=== PATIENT | male | born 1950 | race Two or more races ===

== ENCOUNTER 2021-08-18 21:44 | Inpatient (IN) | payer OTHER ==
[~2021-08-18] VITALS: Ht 182.9 cm; Wt 138.0 kg
[2021-08-18] MEDS ORDERED: DEXTROSE 50% SYRINGE 50 ML IV ONE (21:54)
[2021-08-18] MEDS ORDERED: DEXTROSE (50%) 50ML SYRG IV ONE ×2 (22:15→22:30)
[2021-08-18] MEDS ORDERED: D5W/SOD CHLO 0.9% 1,000 ML IV ONE (22:30)
[2021-08-18 23:05] LABS: Basophils # (auto) 0 10 ^3/uL (0-0.2); Basophils % (auto) 0.6 % (0.0-2.0); Eosinophils # (auto) 0.1 10 ^3/uL (0-0.8); Eosinophils % (auto) 1.1 % (0.0-7.0); Hematocrit 40.9 % (41.0-53.0); Hemoglobin 13.4 g/dL (13.5-17.5); Lymphocytes # (auto) 0.5 10 ^3/uL (0.4-5.4); Lymphocytes % (auto) 8.3 % (10.0-50.0); Mean Corpuscular Hemoglobin 32.9 pg (28.0-32.0); Mean Corpuscular Hgb Conc. 32.7 g/dL (32.0-36.0); Mean Corpuscular Volume 100.5 fL (80.0-100.0); Monocytes # (auto) 0.7 10 ^3/uL (0-1.3); Monocytes % (auto) 10.8 % (0.0-12.0); Neutrophils # (auto) 4.8 10 ^3/uL (1.6-8.6); Neutrophils % (auto) 79.2 % (37.0-80.0); Nucleated Red Blood Cells % 0.1 %; Red Blood Cells 4.07 10^6/uL (4.5-5.90); White Blood Cell 6.1 10^3/uL (4.4-10.8)
[2021-08-18 23:24] LABS: BUN/Creatinine Ratio 11.8; INR 1.16 (0.9-1.15); Magnesium 2.1 mg/dL (1.6-2.6); Partial Thromboplastin Time 30.6 sec (23.6-33.0); Potassium 4.8 mmol/L (3.5-5.1)
[2021-08-18 23:27] LABS: Bilirubin, Total 0.1 mg/dL (0.2-1.0); Total Protein 6.4 g/dL (6.4-8.2)
[2021-08-19] MEDS ORDERED: DEXTROSE (50%) 50ML SYRG IV ONE ×2 (01:00→06:00)
[2021-08-19] MEDS ORDERED: D5W/SOD CHLO 0.9% 1,000 ML IV ONE ×2 (01:15→06:00)
[2021-08-19] MEDS ORDERED: MORPHINE SULFATE INJECTION 2 MG/ML SYRG IV PRN (05:45)
[2021-08-19] MEDS ORDERED: NITROGLYCERIN 0.4 MG SL TAB SL PRN (05:45)
[2021-08-19] MEDS ORDERED: hydrALAZINE HCL 20 MG/ML VL IV PRN ×3 (06:00→07:45)
[2021-08-19] MEDS ORDERED: SODIUM BICARBONATE 8.4 % INJ 50ML VIAL IV ONE (06:00)
[2021-08-19] MEDS ORDERED: DEXTROSE (50%) 50ML SYRG IV PRN (07:30)
[2021-08-19] MEDS: SODIUM CHLORIDE 0.9% 1,000 ML IV SCH ×2 (08:00→17:15)
[2021-08-19] MEDS: ALBUTEROL SULF HFA 90MCG INH 200DOSE IN SCH ×2 (08:16→19:22)
[2021-08-19 09:04] LABS: Basophils # (auto) 0.1 10 ^3/uL (0-0.2); Eosinophils # (auto) 0 10 ^3/uL (0-0.8); Eosinophils % (auto) 0.4 % (0.0-7.0); Hematocrit 43.1 % (41.0-53.0); Hemoglobin 14.3 g/dL (13.5-17.5); Lymphocytes # (auto) 0.5 10 ^3/uL (0.4-5.4); Lymphocytes % (auto) 8.2 % (10.0-50.0); Mean Corpuscular Hemoglobin 33.2 pg (28.0-32.0); Mean Corpuscular Hgb Conc. 33.2 g/dL (32.0-36.0); Mean Corpuscular Volume 100.1 fL (80.0-100.0); Monocytes # (auto) 0.8 10 ^3/uL (0-1.3); Monocytes % (auto) 12.3 % (0.0-12.0); Neutrophils # (auto) 4.8 10 ^3/uL (1.6-8.6); Neutrophils % (auto) 78.1 % (37.0-80.0); Nucleated Red Blood Cells % 0.1 %; Red Blood Cells 4.31 10^6/uL (4.5-5.90); Red Cell Distribution Width 13.1 % (11.8-14.3); White Blood Cell 6.2 10^3/uL (4.4-10.8)
[2021-08-19 10:00] LABS: Urine Bacteria NONE SEEN /hpf (None Seen); Urine Blood 1+ /uL (Negative); Urine Specific Gravity 1.016 (1.001-1.035); Urine WBC 1 /hpf (0 - 3)
[2021-08-19] MEDS ORDERED: DOPamine 1600MCG/ML D5W 250 ML IV SCH (10:00)
[2021-08-19 10:19] LABS: Albumin 1.9 g/dL (3.4-5.0); BUN/Creatinine Ratio 10.8; Calcium 7.3 mg/dL (8.5-10.1)
[2021-08-19 10:22] LABS: Bilirubin, Total 0.4 mg/dL (0.2-1.0); Total Protein 5.9 g/dL (6.4-8.2)
[2021-08-19 10:26] LABS: Potassium 5.8 mmol/L (3.5-5.1)
[2021-08-19] MEDS: DexAMETHasone SOD PHOS 10MG/1ML VIAL INJ IV SCH (10:53)
[2021-08-19] MEDS: ZINC SULFATE 220mg CAP or TAB PO SCH (10:54)
[2021-08-19] MEDS: ASCORBIC ACID 500 MG TAB PO SCH (10:54)
[2021-08-19] MEDS: ENOXAPARIN SOD 40 MG/0.4 ML SYRINGE SC SCH (10:54)
[2021-08-19] MEDS ORDERED: LACTULOSE 20Gm/30ML SOLN PO ONE (11:00)
[2021-08-19] MEDS ORDERED: SODIUM ZIRCONIUM CYCL 10 GM PAK PO ONE (11:00)
[2021-08-19] MEDS: InsuLIN REG 1unit/0.01ml Soln (100units/ml) SC SCH ×3 (11:30→21:12)
[2021-08-19 13:00] VITALS: BP 166/86
[2021-08-19] MEDS: ACCU-CHEK COMFORT CURVE STRIP VI SCH ×3 (13:01→21:18)
[2021-08-19] MEDS ORDERED: LISI-707 PO (13:16)
[2021-08-19] MEDS ORDERED: CARV12.544 PO (13:16)
[2021-08-19] MEDS ORDERED: SPIR25TA8 PO (13:16)
[2021-08-19] MEDS ORDERED: CALC-312 PO (13:16)
[2021-08-19] MEDS ORDERED: CALC-239 PO (13:16)
[2021-08-19] MEDS ORDERED: GLIP10TA9 PO (13:16)
[2021-08-19] MEDS ORDERED: METF-929 PO (13:16)
[2021-08-19] MEDS ORDERED: ALLO100T PO (13:16)
[2021-08-19] MEDS ORDERED: VITA180C PO (13:21)
[2021-08-19] MEDS ORDERED: CHOL100029 PO (13:21)
[2021-08-19] MEDS ORDERED: GARL10005 PO (13:21)
[2021-08-19] MEDS ORDERED: CINN500T PO (13:21)
[2021-08-19 14:15] VITALS: BP 166/86
[2021-08-19 17:00] VITALS: BP 147/86
[2021-08-19 20:58] VITALS: BP 119/59
[2021-08-19 21:13] LABS: Creatinine, Urine 72 mg/dL (30.0-125.0); Sodium Urine 87 mmol/L (40-220)
[2021-08-19 21:21] LABS: Protein, Urine 1140.6 mg/dL (0.0-11.9)
[2021-08-20] MEDS: SODIUM CHLORIDE 0.9% 1,000 ML IV SCH (03:30)
[2021-08-20 05:00] VITALS: BP 106/59
[2021-08-20] MEDS: ACCU-CHEK COMFORT CURVE STRIP VI SCH ×4 (05:22→21:43)
[2021-08-20] MEDS: InsuLIN REG 1unit/0.01ml Soln (100units/ml) SC SCH ×4 (05:25→21:34)
[2021-08-20 07:11] LABS: Basophils # (auto) 0 10 ^3/uL (0-0.2); Basophils % (auto) 0.2 % (0.0-2.0); Eosinophils # (auto) 0 10 ^3/uL (0-0.8); Hematocrit 39.5 % (41.0-53.0); Hemoglobin 13.2 g/dL (13.5-17.5); Lymphocytes # (auto) 0.5 10 ^3/uL (0.4-5.4); Lymphocytes % (auto) 9.1 % (10.0-50.0); Mean Corpuscular Hemoglobin 33.4 pg (28.0-32.0); Mean Corpuscular Hgb Conc. 33.5 g/dL (32.0-36.0); Mean Corpuscular Volume 99.6 fL (80.0-100.0); Monocytes # (auto) 0.6 10 ^3/uL (0-1.3); Monocytes % (auto) 9.8 % (0.0-12.0); Neutrophils # (auto) 4.5 10 ^3/uL (1.6-8.6); Neutrophils % (auto) 80.9 % (37.0-80.0); Red Blood Cells 3.96 10^6/uL (4.5-5.90); White Blood Cell 5.6 10^3/uL (4.4-10.8)
[2021-08-20 07:19] LABS: Albumin 1.8 g/dL (3.4-5.0); BUN/Creatinine Ratio 11.2; Calcium 7.7 mg/dL (8.5-10.1)
[2021-08-20 07:22] LABS: Bilirubin, Total 0.2 mg/dL (0.2-1.0); Total Protein 5.4 g/dL (6.4-8.2)
[2021-08-20] MEDS: ALBUTEROL SULF HFA 90MCG INH 200DOSE IN SCH ×3 (07:57→19:03)
[2021-08-20 08:06] LABS: Potassium 6.2 mmol/L (3.5-5.1)
[2021-08-20] MEDS ORDERED: SODIUM ZIRCONIUM CYCL 10 GM PAK PO ONE (08:45)
[2021-08-20 09:04] VITALS: BP 143/72
[2021-08-20] MEDS: ENOXAPARIN SOD 40 MG/0.4 ML SYRINGE SC SCH (09:14)
[2021-08-20] MEDS: DexAMETHasone SOD PHOS 10MG/1ML VIAL INJ IV SCH (09:14)
[2021-08-20] MEDS: ASCORBIC ACID 500 MG TAB PO SCH (09:14)
[2021-08-20] MEDS: ZINC SULFATE 220mg CAP or TAB PO SCH (09:14)
[2021-08-20] MEDS ORDERED: LACTULOSE 20Gm/30ML SOLN PO ONE (09:30)
[2021-08-20] MEDS ORDERED: SODIUM CHLORIDE 0.9% 1,000 ML IV SCH (11:00)
[2021-08-20 13:00] VITALS: BP 143/79
[2021-08-20] MEDS: SODIUM BICARBONATE 50ML VIAL 50 ML in SOD CHL 0.45% 1,000 ML IV SCH ×2 (14:10→23:15)
[2021-08-20] MEDS: SODIUM ZIRCONIUM CYCL 10 GM PAK PO SCH ×2 (14:11→21:34)
[2021-08-20 17:00] VITALS: BP 142/74
[2021-08-20] MEDS ORDERED: guaiFENesin-DM 100/10mg/5ml SYR PO PRN (20:00)
[2021-08-20] MEDS: THROAT LOZENGES(CEPASTAT) MT PRN (20:27)
[2021-08-20 21:09] VITALS: BP 130/73
[2021-08-21 02:05] LABS: Urine Amorphous Crystal FEW /hpf (None Seen); Urine Bacteria MANY /hpf (None Seen); Urine Blood 2+ /uL (Negative); Urine Hyaline Cast FEW /lpf (0 - 2); Urine Mucus FEW (None Seen); Urine Specific Gravity 1.016 (1.001-1.035); Urine WBC 3 /hpf (0 - 3)
[2021-08-21 05:00] VITALS: BP 147/74
[2021-08-21] MEDS: SODIUM ZIRCONIUM CYCL 10 GM PAK PO SCH ×3 (06:19→21:39)
[2021-08-21] MEDS: THROAT LOZENGES(CEPASTAT) MT PRN ×2 (06:22→17:04)
[2021-08-21] MEDS: InsuLIN REG 1unit/0.01ml Soln (100units/ml) SC SCH ×4 (06:23→21:40)
[2021-08-21] MEDS: ACCU-CHEK COMFORT CURVE STRIP VI SCH ×4 (06:32→22:00)
[2021-08-21 07:36] LABS: Basophils # (auto) 0 10 ^3/uL (0-0.2); Basophils % (auto) 0.1 % (0.0-2.0); Eosinophils # (auto) 0 10 ^3/uL (0-0.8); Hematocrit 36.9 % (41.0-53.0); Hemoglobin 12.5 g/dL (13.5-17.5); Lymphocytes # (auto) 0.6 10 ^3/uL (0.4-5.4); Lymphocytes % (auto) 7.6 % (10.0-50.0); Mean Corpuscular Hemoglobin 33.9 pg (28.0-32.0); Mean Corpuscular Hgb Conc. 33.7 g/dL (32.0-36.0); Mean Corpuscular Volume 100.5 fL (80.0-100.0); Monocytes # (auto) 0.6 10 ^3/uL (0-1.3); Monocytes % (auto) 7.5 % (0.0-12.0); Neutrophils # (auto) 7.1 10 ^3/uL (1.6-8.6); Neutrophils % (auto) 84.8 % (37.0-80.0); Red Blood Cells 3.68 10^6/uL (4.5-5.90); White Blood Cell 8.4 10^3/uL (4.4-10.8)
[2021-08-21 07:50] LABS: BUN/Creatinine Ratio 12.5; Potassium 5.3 mmol/L (3.5-5.1)
[2021-08-21 09:00] VITALS: BP 112/65
[2021-08-21] MEDS: ZINC SULFATE 220mg CAP or TAB PO SCH (09:24)
[2021-08-21] MEDS: DexAMETHasone SOD PHOS 10MG/1ML VIAL INJ IV SCH (09:24)
[2021-08-21] MEDS: ASCORBIC ACID 500 MG TAB PO SCH (09:25)
[2021-08-21] MEDS: ENOXAPARIN SOD 40 MG/0.4 ML SYRINGE SC SCH (12:27)
[2021-08-21 12:36] VITALS: BP 136/79
[2021-08-21] MEDS: ALBUTEROL SULF HFA 90MCG INH 200DOSE IN SCH ×4 (14:00→22:30)
[2021-08-21] MEDS: SODIUM BICARBONATE 50ML VIAL 50 ML in SOD CHL 0.45% 1,000 ML IV SCH ×2 (16:34→20:38)
[2021-08-21 16:46] VITALS: BP 142/58
[2021-08-21 22:00] VITALS: BP 150/76
[2021-08-22] MEDS: SODIUM ZIRCONIUM CYCL 10 GM PAK PO SCH ×3 (06:00→22:00)
[2021-08-22] MEDS: InsuLIN REG 1unit/0.01ml Soln (100units/ml) SC SCH ×4 (06:49→22:17)
[2021-08-22] MEDS: ACCU-CHEK COMFORT CURVE STRIP VI SCH ×4 (07:00→22:16)
[2021-08-22] MEDS ORDERED: SODIUM CHL 0.9% 1000 ML BAG XX ONE (07:00)
[2021-08-22 08:00] VITALS: BP 126/73
[2021-08-22 08:07] LABS: Basophils # (auto) 0 10 ^3/uL (0-0.2); Basophils % (auto) 0.2 % (0.0-2.0); Eosinophils # (auto) 0 10 ^3/uL (0-0.8); Hematocrit 39.7 % (41.0-53.0); Hemoglobin 13.2 g/dL (13.5-17.5); Lymphocytes # (auto) 0.6 10 ^3/uL (0.4-5.4); Lymphocytes % (auto) 4.4 % (10.0-50.0); Mean Corpuscular Hemoglobin 33.6 pg (28.0-32.0); Mean Corpuscular Hgb Conc. 33.4 g/dL (32.0-36.0); Mean Corpuscular Volume 100.7 fL (80.0-100.0); Monocytes # (auto) 0.7 10 ^3/uL (0-1.3); Neutrophils # (auto) 12.4 10 ^3/uL (1.6-8.6); Neutrophils % (auto) 90.4 % (37.0-80.0); Nucleated Red Blood Cells % 0.1 %; Red Blood Cells 3.94 10^6/uL (4.5-5.90); Red Cell Distribution Width 13.3 % (11.8-14.3); White Blood Cell 13.8 10^3/uL (4.4-10.8)
[2021-08-22 08:20] LABS: BUN/Creatinine Ratio 13.2; Calcium 6.8 mg/dL (8.5-10.1)
[2021-08-22 08:55] LABS: Potassium 5.6 mmol/L (3.5-5.1)
[2021-08-22 09:00] VITALS: BP 132/66
[2021-08-22] MEDS: ALBUTEROL SULF HFA 90MCG INH 200DOSE IN SCH ×2 (09:21→14:00)
[2021-08-22] MEDS ORDERED: FUROSEMIDE 100 MG/10ML VIAL IV ONE (09:30)
[2021-08-22] MEDS ORDERED: SODIUM BICARBONATE 8.4 % INJ 50ML VIAL IV ONE (09:30)
[2021-08-22] MEDS: DexAMETHasone SOD PHOS 10MG/1ML VIAL INJ IV SCH (09:31)
[2021-08-22] MEDS: ASCORBIC ACID 500 MG TAB PO SCH (09:31)
[2021-08-22] MEDS: ZINC SULFATE 220mg CAP or TAB PO SCH (09:31)
[2021-08-22] MEDS: ENOXAPARIN SOD 40 MG/0.4 ML SYRINGE SC SCH (09:31)
[2021-08-22] MEDS ORDERED: SODIUM ZIRCONIUM CYCL 10 GM PAK PO ONE (09:45)
[2021-08-22] MEDS ORDERED: HEPARIN 1,000 UNITS/ml 1ML VIAL ONE ×2 (10:52→11:01)
[2021-08-22 11:58] LABS: INR 1.18 (0.9-1.15); Partial Thromboplastin Time 27.9 sec (23.6-33.0)
[2021-08-22 12:07] LABS: Hepatitis A Ab IgM Negative
[2021-08-22 12:55] LABS: Hepatitis B Core IgM Negative
[2021-08-22 13:08] LABS: Hepatitis C Antibody Negative (Negative)
[2021-08-22 13:18] LABS: Hepatitis C Antibody Negative (Negative)
[2021-08-22] MEDS ORDERED: LORazepam 2MG/ML-1ML VIAL ONE (14:46)
[2021-08-22] MEDS ORDERED: LORazepam 2MG/ML-1ML VIAL IV PRN (15:15)
[2021-08-22 16:20] VITALS: BP 124/56
[2021-08-22 16:51] VITALS: BP 121/54
[2021-08-22] MEDS ORDERED: diphenhdrAMINE HCL 50 MG/1 ML VL IV ONE (18:15)
[2021-08-22] MEDS ORDERED: EPOETIN ALFA-EPBX 10,000 UNIT/1ML VIAL SC ONE (21:00)
[2021-08-22 21:52] VITALS: BP 120/52
[2021-08-22] MEDS ORDERED: ALBUTEROL SULF 2.5 MG/0.5ML(0.5%) NEB SOLN NEB PRN (23:15)
[2021-08-23 05:03] VITALS: BP 147/69
== END 2021-08-23 05:29 | DRG 177 ==
LOC: ER 21:44 → EDBD 21:44 → TELE 08-19 05:48 → TELE-EAST 08-19 11:14 → OBSVTOIN 08-20 09:13 → TELE-E-ADS 08-22 10:36
PROVIDERS: ADMIT Internal Medicine; ATTEND Internal Medicine
PROC: 06HY33Z Insertion of Infusion Device into Lower Vein, Percutaneous Approach (ICD-10-PCS; principal; 2021-08-22)
PROC: 06HY33Z Insertion of Infusion Device into Lower Vein, Percutaneous Approach (ICD-10-PCS; 2021-08-22)
PROC: 5A1D70Z Performance of Urinary Filtration, Intermittent, Less than 6 Hours Per Day (ICD-10-PCS; 2021-08-22)
PROC: 5A09357 Assistance with Respiratory Ventilation, Less than 24 Consecutive Hours, Continuous Positive Airway Pressure (ICD-10-PCS; 2021-08-22)
DX: U07.1 COVID-19 (principal); J12.82 Pneumonia due to coronavirus disease 2019; N17.0 Acute kidney failure with tubular necrosis; J96.00 Acute respiratory failure, unspecified whether with hypoxia or hypercapnia; Z68.41 Body mass index [BMI] 40.0-44.9, adult; Z66 Do not resuscitate; E11.22 Type 2 diabetes mellitus with diabetic chronic kidney disease; E11.65 Type 2 diabetes mellitus with hyperglycemia; E66.01 Morbid (severe) obesity due to excess calories; E87.5 Hyperkalemia; I12.9 Hypertensive chronic kidney disease with stage 1 through stage 4 chronic kidney disease, or unspecified chronic kidney disease; N18.9 Chronic kidney disease, unspecified; E78.5 Hyperlipidemia, unspecified
CPT/HCPCS: 36415; 36600; 71045; 76775; 80048; 80053; 80074; 81001; 82306; 82570; 82805; 82962; 83735; 83880; 83970; 84100; 84156; 84300; 84484; 85025; 85610; 85730; 86803; 87340; 87426; 90935; 93971; 94640; 94660; 96361; 96374; 96375; G0378; J1100; J1642; J1815